=== PATIENT | male | born 1955 | race Caucasian/White ===

== ENCOUNTER 2021-08-28 08:15 | Inpatient (IN) | payer MEDICARE, OTHER ==
[~2021-08-28] VITALS: Ht 172.7 cm; Wt 108.0 kg
--- NOTE | 2021-10-06 05:35 | NUR ---
66 Year old male admitted to [facility] bay #8 via ambulation. His is present. Height and weight obtained. The patient has a steady gait and no assistive devices used. Medications and HX reviewed. Physical assessment completed. Allergies reviewed. Procedure verified and consent was signed. First and last name + verified with the patient, who verbalized understanding of procedure. The patient used the bathroom prior to changing into a clean gown. Non-slip socks are on. Warm blanket provided. Side rails x2. IV was started in his R hand on first attempt with 20G. IVF scanned and are infusing without difficulty. PO medications administered. Call laws is at bedside. The patient verbalized understanding of the medications and realted side effects prior to taking. Vitals obtained and are WNL.
[2021-10-06] MEDS ORDERED: NORVASC 5MG5 MG/TAB PO (06:03)
[2021-10-06] MEDS ORDERED: ALLOPURINOL PO (06:03)
[2021-10-06] MEDS ORDERED: SINGULAIR 110 MG/TAB PO (06:04)
[2021-10-06] MEDS ORDERED: L-THYROXINE PO (06:04)
[2021-10-06] MEDS ORDERED: MUCINEX 60600 MG/TA1 PO (06:04)
[2021-10-06] MEDS ORDERED: PROTONIX 40MG T40 MG PO (06:05)
[2021-10-06] MEDS ORDERED: K-DUR20 MEQ PO (06:05)
[2021-10-06] MEDS ORDERED: ZYRTEC10MGSGL PO (06:06)
[2021-10-06] MEDS ORDERED: COLACE 100100 MG/CAP PO (06:06)
[2021-10-06] MEDS ORDERED: CRESTOR 10MG10 MG PO (06:06)
[2021-10-06] MEDS ORDERED: LASIX 20MG TABL20 MG PO (06:07)
[2021-10-06] MEDS ORDERED: YUPELRI175 MCG/3 IH (06:07)
[2021-10-06] MEDS ORDERED: BROVANA15 MCG/2 M IH (06:08)
[2021-10-06] MEDS ORDERED: NASAL SPRAY (06:08)
[2021-10-06] MEDS ORDERED: PULMICORT0.25 MG/2 (06:08)
[2021-10-06] MEDS ORDERED: IBU600 MG PO (06:09)
[2021-10-06] MEDS ORDERED: ALBUTEROL (06:09)
[2021-10-06] MEDS ORDERED: NAPHCON A OP (06:09)
[2021-10-06] MEDS ORDERED: TESSALON P100 MG/CAP PO (06:10)
[2021-10-06] MEDS ORDERED: KLONOPIN 1MG1 MG PO (06:10)
[2021-10-06] MEDS ORDERED: TUSS PO (06:10)
[2021-10-06] MEDS ORDERED: VIAGRA100 M1 PO (06:11)
--- NOTE | 2021-10-06 06:27 | NUR ---
PO MEDICATIONS ADMINSTERED
[2021-10-06 06:31] VITALS: BP 123/83; PULSE 71; TEMP 97.7
--- NOTE | 2021-10-06 07:02 | NUR ---
is in to see the patient.
--- NOTE | 2021-10-06 07:06 | NUR ---
Patient was taken back to the OR by CHESTER Perez via cart. Jinny, skilled nursing facilities professional is present to assist.
[2021-10-06 16:00] VITALS: BP 106/70; PULSE 69; TEMP 97.6
[2021-10-06 21:29] VITALS: BP 112/75; PULSE 64; TEMP 97.4
[2021-10-07 00:45] VITALS: BP 119/68; PULSE 65; TEMP 98.4
--- NOTE | 2021-10-07 03:21 | NUR ---
PATIENT DOING WELL TONIGHT. ALERT AND ORIENTED. C/O MODERATE GAS PAIN, SEE MAR FOR MED ADMINISTRATION. PERERA TO DD WITH DEO YELLOW URINE. IV TO R HAND PATENT AND FLUSHED. SCDS ON AT THIS TIME. REQUESTING BREATHING TREATMENT AND CALL PLACED TO PHARMACY AND ASKED TO VERIFY HOME NEBULIZER TX. PATIENT CURRENTLY RESTING IN BED WITH CPAP ON, CALL LIGHT WITHIN REACH.
[2021-10-07 04:56] VITALS: BP 126/78; PULSE 61; TEMP 97.5
[2021-10-07 07:23] LABS: CALCIUM 8.9 mg/dL (8.4-10.2); CREATININE, serum 0.79 mg/dL (0.72-1.25); POTASSIUM 4.4 mmol/L (3.5-4.5)
[2021-10-07 07:35] LABS: HEMATOCRIT 38.6 % (42.0-52.0)
[2021-10-07 08:00] VITALS: BP 123/70; PULSE 68; TEMP 97.7
--- NOTE | 2021-10-07 12:15 | NUR ---
PATIENTS IV REMOVED, PERERA CATHETER CHANGED TO LEG BAG, PATIENT CHANGED CLOTHES AND GOT READY TO LEAVE. DISCHARGE PAPERS REVIEWED AND PATIENT SIGNED. PATIENT VERBALIZED UNDERSTANDING OF INSTRUCTIONS. PATIENT'S PRESENT AND ASSISTED HIM OUT TO CAR WITH AIDE.
--- NOTE | 2021-10-07 12:26 | NUR ---
Chaplain estevez and offered support with patient.
== END 2021-10-07 12:15 | disposition home or self-care (01) | DRG 708 ==
LOC: SURG 09-19 07:30 → INPTSU 10-06 05:22 → SURG 10-06 07:30
PROVIDERS: ADMIT Urology
PROC: 0VT34ZZ Resection of Bilateral Seminal Vesicles, Percutaneous Endoscopic Approach (ICD-10-PCS; 2021-10-06)
PROC: 07BC4ZZ Excision of Pelvis Lymphatic, Percutaneous Endoscopic Approach (ICD-10-PCS; 2021-10-06)
PROC: 8E0W4CZ Robotic Assisted Procedure of Trunk Region, Percutaneous Endoscopic Approach (ICD-10-PCS; 2021-10-06)
PROC: 0VT04ZZ Resection of Prostate, Percutaneous Endoscopic Approach (ICD-10-PCS; principal; 2021-10-06 07:30)
DX: C61 Malignant neoplasm of prostate (principal)
CPT/HCPCS: A4314; J1100; J1170; J1885; J1956; J2270; J2405; J2704; J3010; J7120